=== PATIENT | female | born 1965 | race Caucasian/White ===

== ENCOUNTER → 2017-12-18 | Outpatient (CLI) | payer OTHER ==
--- NOTE | 2017-12-18 15:46 | XR ---
EXAMINATION TYPE: XR chest 2V DATE OF EXAM: 12/18/2017 COMPARISON: NONE HISTORY: Cough, R05, shortness of breath TECHNIQUE: Frontal and lateral views of the chest are obtained. FINDINGS: There is no focal air space opacity, pleural effusion, or pneumothorax seen. The cardiac silhouette size is within normal limits. Postop changes are noted to the cervical spine. There is b ronchial wall thickening. The osseous structures are intact. IMPRESSION: Correlate for bronchitis. Follow-up as indicated.
== END | disposition home or self-care (01) ==
LOC: RADXRYALE 11:04
PROVIDERS: ATTEND Internal Medicine
DX: R05 Cough (principal)
CPT/HCPCS: 71046

== ENCOUNTER → 2020-10-13 | Outpatient (CLI) | payer MEDICARE, OTHER ==
[2020-10-13 09:26] VITALS: BP 133/73; PULSE 78; RESP 18; TEMP 98.3
--- NOTE | 2020-10-13 09:48 | P.PN ---
Progress Note - Text Progress Note Date: 10/13/20 This is 54 years old female, who had a spinal cord stimulator trial done at the [facility] in [place], and she is here today to have her spinal cord stimulator trial leads removed, because [place] to this area, and we don't do this procedure at [facility] pain clinic , today we removed the percutaneous lead, and sterile technique, tip intact, there is no sign of infection or discharge or erythema, Band-Aid applied, the patient will follow up with for further management. - PQRS measures = - Patient's medications are documented in the chart. -Tobacco use is negative and counseling.Given. -Patient's has not received pneumococcal vaccine. -Advanced care planning discussed, patient not eligible. -Opiate contract signed. -Pain positive and follow-up visit/procedure is scheduled. -Patient's blood pressure measured [133/73 ] , and documented in the record ,and patient will follow up with the primary care. -Patient's weight was measured and body mass index [ 29. ] above the normal limits and counseling was done. and patient instructed to follow-up with the primary care physician. -Patient was not identified as an unhealthy alcohol user
== END | disposition home or self-care (01) ==
LOC: PNWHC3 09:11
PROVIDERS: ATTEND Specialist
DX: M54.5 Low back pain (principal); Z98.890 Other specified postprocedural states
CPT/HCPCS: 99211